=== PATIENT | male | born 1970 | race Caucasian/White ===

== ENCOUNTER → 2018-03-01 17:41 | Outpatient (REF) | payer MEDICAID, SELFPAY ==
[2018-03-01 21:08] LABS: Abs Immature Grans 0.02 k/cumm (0.0-0.09); Absolute Basophil Count 0.04 k/cumm (0.0-0.2); Absolute Eosinophil Count 0.15 k/cumm (0.0-0.7); Absolute Lymphocyte Count 2.15 k/cumm (1.2-3.4); Absolute Neutrophil Count 4.28 k/cumm (1.2-6.7); Basophils % 0.6; Eosinophils % 2.1; HCT 44.9 % (40.0-50.0); HGB 15.7 g/dL (13.5-17.5); Immature Grans % 0.3; Lymphocytes % 30.1; Mean Corpuscular Hemoglobin 30.4 pg (27.0-33.0); Mean Corpuscular Volume 86.8 fL (80-95); Mean Platelet Volume 10.9 fL (8.0-11.0); Neutrophils % 59.9; Platelet Count 187 x1000/uL (130-400); RBC 5.17 m/cumm (4.50-6.00); RBC Distribution Width 13.7 % (11.8-14.1); White Blood Cell Count 7.14 k/cumm (4.4-10.8)
[2018-03-01 21:22] LABS: ALT 29 U/L (12-78); AST 12 U/L (15-37); Albumin 4.4 g/dL (3.4-5.0); Alkaline Phosphatase 50 U/L (46-116); Anion Gap 10.6 mmol/L (3-11); BUN 22 mg/dL (7-18); Bilirubin, Total 0.6 mg/dL (0.2-1.0); CO2 27.4 mmol/L (21.0-32.0); CREATININE 0.93 mg/dL (0.70-1.30); Calcium 9.1 mg/dL (8.5-10.1); Chloride 104 mmol/L (98-107); Glucose 85 mg/dL (70-100); Potassium 4.2 mmol/L (3.5-5.1); Sodium 142 mmol/L (136-145); TSH 3.23 uIU/mL (0.358-3.74); Total Protein 7.2 g/dL (6.4-8.2)
[2018-03-01 21:27] LABS: Troponin I < 0.02 ng/mL (0.00-0.06)
== END ==
LOC: NCHCN 17:41
PROVIDERS: PCP Physician Assistant; Visit Provider Physician Assistant Medical
DX: R10.12 Left upper quadrant pain (principal); R00.2 Palpitations
CPT/HCPCS: 80053; 85027; 83735; 84443; 84484; 85025

== ENCOUNTER 2018-11-13 20:25 | Outpatient (REF) | payer MEDICAID, SELFPAY ==
[2018-11-13 20:03] LABS: HCT 47.3 % (40.0-50.0); HGB 16.4 g/dL (13.5-17.5); Mean Corp. HGB Concentration 34.7 g/dL (32.0-36.0); Mean Corpuscular Volume 86.6 fL (80-95); Mean Platelet Volume 10.4 fL (8.0-11.0); Platelet Count 199 x1000/uL (130-400); RBC 5.46 m/cumm (4.50-6.00); RBC Distribution Width 13.8 % (11.8-14.1); White Blood Cell Count 9.18 k/cumm (4.4-10.8)
[2018-11-13 20:16] LABS: ALT 33 U/L (12-78); AST 19 U/L (15-37); Albumin 4.3 g/dL (3.4-5.0); Alkaline Phosphatase 58 U/L (46-116); Anion Gap 6.6 mmol/L (3-11); BUN 22 mg/dL (7-18); Bilirubin, Total 0.6 mg/dL (0.2-1.0); CO2 29.4 mmol/L (21.0-32.0); CREATININE 0.88 mg/dL (0.70-1.30); Calcium 9.3 mg/dL (8.5-10.1); Chloride 102 mmol/L (98-107); Glucose 110 mg/dL (70-100); Potassium 4.7 mmol/L (3.5-5.1); Sodium 138 mmol/L (136-145); Total Protein 7.6 g/dL (6.4-8.2)
== END 2018-11-13 20:45 ==
LOC: NCHCN 20:25
PROVIDERS: PCP Physician Assistant; Visit Provider Physician Assistant Medical
DX: R10.12 Left upper quadrant pain (principal)
CPT/HCPCS: 80053; 85027

== ENCOUNTER 2020-04-08 12:22 | Outpatient (REF) | payer MEDICAID, SELFPAY ==
[2020-04-10 11:23] LABS: Hepatitis B Surface Ag Negative (Negative)
[2020-04-10 12:02] LABS: HIV-1/2 Ag & Ab Screen Negative (Negative)
[2020-04-10 12:13] LABS: Hepatitis C Ab w Rflx HCV PCR Negative (Negative)
[2020-04-10 15:09] LABS: GC Result Negative (Negative)
[2020-04-10 15:27] LABS: Chlamydia Result Positive (Negative)
[2020-04-10 17:25] LABS: Syphilis Serology (RPR) Negative (Negative)
== END 2020-04-08 12:42 ==
LOC: NCHCN 12:22
PROVIDERS: PCP Physician Assistant; Visit Provider Physician Assistant
DX: Z20.2 Contact with and (suspected) exposure to infections with a predominantly sexual mode of transmission (principal); Z11.4 Encounter for screening for human immunodeficiency virus [HIV]; Z11.59 Encounter for screening for other viral diseases; Z11.3 Encounter for screening for infections with a predominantly sexual mode of transmission
CPT/HCPCS: 86803; 87340; 87389; 87491; 87591; 86592

== ENCOUNTER 2020-05-09 23:22 | Outpatient (REF) | payer MEDICAID, SELFPAY ==
[2020-05-12 15:13] LABS: Chlamydia Result Negative (Negative); GC Result Negative (Negative)
== END 2020-05-09 23:42 ==
LOC: NCHCN 23:22
PROVIDERS: PCP Physician Assistant; Visit Provider Physician Assistant
DX: A56.00 Chlamydial infection of lower genitourinary tract, unspecified (principal)
CPT/HCPCS: 87491; 87591

== ENCOUNTER 2023-05-13 16:50 | Outpatient (REF) | payer MEDICAID, SELFPAY ==
[2023-05-13 18:46] LABS: HCT 44.3 % (40.0-50.0); HGB 15.7 g/dL (13.5-17.5); MCH 30.8 pg (27.0-33.0); MCHC 35.4 % (32.0-36.0); MCV 87 fL (80-95); MPV 10.3 fL (8.0-11.0); Platelet Count 187 10^3/uL (130-400); RBC 5.09 10^6/uL (4.36-5.78); RDW 13.1 % (11.8-14.1); RDW-SD 41.6 fL; WBC 7.97 10^3/uL (4.4-10.8)
[2023-05-13 19:00] LABS: Hemoglobin A1C 5.2 % (<5.7)
[2023-05-13 19:10] LABS: ALT 29 U/L (16-63); AST 17 U/L (15-37); Albumin 4.3 g/dL (3.4-5.0); Alkaline Phosphatase 47 U/L (46-116); Anion Gap 9.4 mmol/L (3-11); BUN 16 mg/dL (7-18); Bilirubin, Total 0.7 mg/dL (0.2-1.0); CO2 28.6 mmol/L (21.0-32.0); Calcium 9.5 mg/dL (8.5-10.1); Chloride 106 mmol/L (98-107); Estimated GFR 88.88 (mL/min/1.73m2); Glucose 100 mg/dL (74-106); LDL CHOLESTEROL 91 mg/dL (<100); Potassium 4.5 mmol/L (3.5-5.1); Sodium 144 mmol/L (136-145); TSH (W/Ref FT4) 2.03 uIU/mL (0.36-3.74); Total Protein 7.4 g/dL (6.4-8.2)
== END 2023-05-13 16:51 | disposition home or self-care (01) ==
LOC: NCHCN 16:50
PROVIDERS: PCP Physician Assistant; Visit Provider Physician Assistant
DX: F41.9 Anxiety disorder, unspecified (principal); E66.9 Obesity, unspecified; R00.2 Palpitations; Z00.00 Encounter for general adult medical examination without abnormal findings
CPT/HCPCS: 80053; 83721; 85027; 83036; 84443

== ENCOUNTER 2024-05-15 22:35 | Outpatient (REF) | payer SELFPAY ==
[2024-05-15 19:35] LABS: ALT 37 U/L (16-63); AST 20 U/L (15-37); Albumin 4.2 g/dL (3.4-5.0); Alkaline Phosphatase 50 U/L (46-116); Anion Gap 11.2 mmol/L (3-11); BUN 18 mg/dL (7-18); Bilirubin, Total 0.61 mg/dL (0.2-1.0); CO2 26.8 mmol/L (21.0-32.0); Calcium 9.1 mg/dL (8.5-10.1); Chloride 106 mmol/L (98-107); Estimated GFR 88.33 (mL/min/1.73m2); Glucose 101 mg/dL (74-106); Potassium 4.3 mmol/L (3.5-5.1); Sodium 144 mmol/L (136-145); Total Protein 7.4 g/dL (6.4-8.2)
[2024-05-17 11:22] LABS: Lyme Ab w Rflx to Lyme Confirm Negative (Negative)
[2024-05-19 16:39] LABS: Anaplasma phagocytophilum Negative (Negative); B. miyamotoi PCR Negative (Negative); Babesia divergens/MO-1 Negative (Negative); Babesia duncani Negative (Negative); Babesia microti Negative (Negative); Ehrlichia chaffeensis Negative (Negative); Ehrlichia ewingii/canis Negative (Negative); Ehrlichia muris eauclairensis Negative (Negative)
== END 2024-05-15 22:36 | disposition home or self-care (01) ==
LOC: NCHCN 22:35
PROVIDERS: PCP Physician Assistant; Visit Provider Physician Assistant
DX: M25.59 Pain in other specified joint (principal)
CPT/HCPCS: 80053; 87798; 86618